=== PATIENT | female | born 1965 | race Caucasian/White ===

== ENCOUNTER 2017-05-20 10:38 | Emergency (ER) | payer BC ==
[2017-05-20 10:39] VITALS: BMI 26.0
--- NOTE | 2017-05-20 17:09 | ED PDOC ---
Arrival/HPI - General Time Seen by Provider: 05/20/17 11:00 Historian: Other (Left before being seen) Past Medical History - Past Medical History Past Medical History: No Previous - Psychiatric Hx Depression: No Hx Emotional Abuse: No Hx Physical Abuse: No Hx Substance Use: No - Surgical History Hx Orthopedic Surgery: Yes (L ANKLE) - Suicidal Assessment Feels Threatened In Home Enviroment: No Family/Social History Family/Social History: Unknown Family HX Hx Alcohol Use: No Hx Substance Use: No Hx Substance Use Treatment: No Allergies/Home Meds Allergies/Adverse Reactions: Allergies No Known Allergies Allergy (Verified 02/10/14 09:49) Disposition/Present on Arrival - Present on Arrival Any Indicators Present on Arrival: No History of DVT/PE: No History of Uncontrolled Diabetes: No Urinary Catheter: No History Surgical Site Infection Following: None - Disposition Have Diagnosis and Disposition been Completed?: No Diagnosis: Patient left before evaluation by physician Disposition: ELOPEMENT - ER ONLY Disposition Time: 11:20 Condition: GOOD
== END 2017-05-20 17:08 | disposition left against medical advice (07) ==
LOC: ED 10:38
DX: Z02.89 Encounter for other administrative examinations (principal); S93.601A Unspecified sprain of right foot, initial encounter